=== PATIENT | female | born 1945 | race Caucasian/White ===

== ENCOUNTER 2017-03-12 12:50 | Day surgery (SDC) | payer OTHER, BC ==
[~2017-03-12] VITALS: Ht 162.6 cm; Wt 72.0 kg
[~2017-03-12 12:50] MED LIST: ATIVAN0.5 MG PO; CELEXA20 MG PO; DIOVAN HCT 31 TABLE1 PO; METFORMIN HCL500 MG PO; PRAVACHOL40 MG PO; PROTONIX40 MG PO; TUMS500 MG PO; TYLENOL EXTRA500 MG PO; VITAMIN D31000 UNI2 PO
[2017-03-12 13:35] VITALS: BP 130/58
[2017-03-12 18:50] VITALS: BP 113/53
[2017-03-12 20:11] VITALS: BP 117/59
== END 2017-03-12 20:23 | disposition home or self-care (01) ==
LOC: SDC 12:50
PROVIDERS: Orthopaedic Surgery
DX: S83.241A Other tear of medial meniscus, current injury, right knee, initial encounter (principal); M17.11 Unilateral primary osteoarthritis, right knee; S82.141A Displaced bicondylar fracture of right tibia, initial encounter for closed fracture; X58.XXXA Exposure to other specified factors, initial encounter; M94.261 Chondromalacia, right knee; M65.9 Synovitis and tenosynovitis, unspecified; I10 Essential (primary) hypertension; E78.00 Pure hypercholesterolemia, unspecified; F41.9 Anxiety disorder, unspecified; R73.03 Prediabetes; Z79.84 Long term (current) use of oral hypoglycemic drugs
CPT/HCPCS: 73560; 76000; 82948; J0690; J1885; J2250; J2270; J2274; J2795; J3010